=== PATIENT | male | born 1975 | race Caucasian/White ===

== ENCOUNTER 2018-08-01 16:53 | Emergency (ER) | payer MEDICAID ==
[~2018-08-01] VITALS: Ht 188 cm; Wt 117.9 kg
[2018-08-01 17:20] VITALS: Ht 188 cm; Wt 117.9 kg
[2018-08-01 18:48] VITALS: BP 147/105
== END 2018-08-01 18:48 | disposition home or self-care (01) ==
LOC: ED 16:53
DX: J06.9 Acute upper respiratory infection, unspecified (principal); Z88.6 Allergy status to analgesic agent; Z88.8 Allergy status to other drugs, medicaments and biological substances

== ENCOUNTER 2019-09-29 13:01 | Emergency (ER) | payer MEDICAID ==
[~2019-09-29] VITALS: Ht 182.9 cm; Wt 120.2 kg
[2019-09-29 15:01] VITALS: BP 128/76
== END 2019-09-29 15:01 | disposition home or self-care (01) ==
LOC: ED 13:01
DX: J98.01 Acute bronchospasm (principal); K21.9 Gastro-esophageal reflux disease without esophagitis; Z88.5 Allergy status to narcotic agent; Z88.6 Allergy status to analgesic agent
CPT/HCPCS: Q0092